=== PATIENT | male | born 1995 | race Caucasian/White ===

== ENCOUNTER 2017-12-06 19:02 | Emergency (ER) | payer SELFPAY ==
[~2017-12-06] VITALS: Ht 185.4 cm; Wt 81.4 kg
[2017-12-06 19:17] VITALS: BP 121/68
[2017-12-06] MEDS ORDERED: ARIP2 PO (19:18)
== END 2017-12-06 21:00 | disposition left against medical advice (07) ==
LOC: EMS 19:08
DX: Z48.02 Encounter for removal of sutures (principal); Z53.21 Procedure and treatment not carried out due to patient leaving prior to being seen by health care provider

== ENCOUNTER 2020-11-24 13:35 | Emergency (ER) | payer MEDICARE, OTHER ==
[~2020-11-24] VITALS: Ht 185.4 cm; Wt 95.5 kg
[~2020-11-24 13:35] MED LIST: ARIP2 PO
[2020-11-24 13:47] VITALS: BP 119/74
[2020-11-24] MEDS ORDERED: ZYPREXA (13:51)
== END 2020-11-24 15:28 | disposition home or self-care (01) ==
LOC: EMS 13:48
DX: B86 Scabies (principal); F17.210 Nicotine dependence, cigarettes, uncomplicated; F12.90 Cannabis use, unspecified, uncomplicated
CPT/HCPCS: Z7502

== ENCOUNTER 2021-02-02 09:36 | Emergency (ER) | payer MEDICARE, OTHER ==
[~2021-02-02] VITALS: Ht 185.4 cm; Wt 86.4 kg
[~2021-02-02 09:36] MED LIST changes: -ARIP2 PO; +ZYPREXA
[2021-02-02] MEDS ORDERED: CefTRIAXone SODIUM 1 GM/VIAL IM ONE (10:00)
[2021-02-02] MEDS ORDERED: AZITHROMYCIN 500 MG TABLET PO ONE (10:00)
[2021-02-02] MEDS ORDERED: LIDOCAINE/PF 1% 2 ML VIAL IM ONE (10:00)
[2021-02-02 10:40] VITALS: BP 128/71
== END 2021-02-02 10:51 | disposition home or self-care (01) ==
LOC: EMS 09:36
DX: N34.2 Other urethritis (principal); F20.9 Schizophrenia, unspecified; F17.210 Nicotine dependence, cigarettes, uncomplicated; F12.90 Cannabis use, unspecified, uncomplicated
CPT/HCPCS: 87491; 87591; 96372; 99283; A9575; J0696; J3490

== ENCOUNTER 2021-02-08 08:50 | Emergency (ER) | payer MEDICARE, OTHER ==
[~2021-02-08] VITALS: Ht 185.4 cm; Wt 81.8 kg
[2021-02-08] MEDS ORDERED: SODIUM CHLORIDE 0.9% 1,000 ML IV ONE (09:30)
[2021-02-08] MEDS ORDERED: DICYCLOMINE HCL 20 MG TABLET PO ONE (09:30)
[2021-02-08 09:52] LABS: ANION GAP 10 mmol/L (8-16); CALCIUM, TOTAL 9.3 mg/dL (8.8-10.5); CARBON DIOXIDE 28 mmol/L (22-29); CHLORIDE 104 mmol/L (98-107); CREATININE 0.95 mg/dL (0.60-1.30); GLOMERULAR FILTR. RATE CALC > 60 mL/min (>60); GLUCOSE,RANDOM 103 mg/dL (70-110); POTASSIUM 4.3 mmol/L (3.5-5.1); SODIUM SERUM 142 mmol/L (136-145); UREA NITROGEN, BLOOD 15 mg/dL (7-18)
[2021-02-08 09:58] LABS: ALANINE AMINOTRANSFERASE 26 U/L (12-78); ALBUMIN 4.9 g/dL (3.4-5.0); ALKALINE PHOSPHATASE 120 U/L (46-116); ASPARTATE AMINOTRANSFERASE 20 U/L (15-37); BILIRUBIN,TOTAL 0.5 mg/dL (0.1-1.0); LIPASE 334 U/L (73-393); TOTAL PROTEIN, SERUM 8.4 g/dL (6.4-8.2)
[2021-02-08 10:00] LABS: CARBAMAZEPINE (TEGRETOL) < 0.5 mcg/mL (4.0-12.0)
[2021-02-08 11:02] LABS: BASOPHILS % (AUTO) 0.2 % (0.0-2.0); EOSINOPHILS % (AUTO) 0.4 % (1.0-6.0); HEMOGLOBIN 15.7 g/dL (13.5-17.5); LYMPHOCYTES # (AUTO) 1.1 K/uL (1.0-4.8); LYMPHOCYTES % (AUTO) 8.9 % (22.0-44.0); MEAN CORPUSCULAR HEMOGLOBIN 30.3 pg (26.0-34.0); MEAN CORPUSCULAR HGB CONC 33.5 G/dL (31.0-37.0); MEAN CORPUSCULAR VOLUME 91 fL (80-100); MONOCYTES # (AUTO) 0.9 K/uL (0.1-1.0); MONOCYTES % (AUTO) 7.3 % (2.0-9.0); NEUTROPHILS # (AUTO) 10.4 K/uL (1.8-7.7); NEUTROPHILS % (AUTO) 83.2 % (40.0-70.0); PLATELET COUNT (AUTO) 267 K/uL (150-450); RED BLOOD CELL COUNT(AUTO) 5.19 MIL/uL (4.50-5.90); RED CELL DISTRIBUTION WIDTH 13.4 % (11.5-14.5)
[2021-02-08 11:13] VITALS: BP 134/81
== END 2021-02-08 11:16 | disposition home or self-care (01) ==
LOC: EMS 08:57
DX: R10.13 Epigastric pain (principal); R11.2 Nausea with vomiting, unspecified; R19.7 Diarrhea, unspecified; F20.9 Schizophrenia, unspecified; F12.90 Cannabis use, unspecified, uncomplicated; F17.210 Nicotine dependence, cigarettes, uncomplicated
CPT/HCPCS: 36415; 80053; 80156; 83690; 85025; 96360; 99283; J7030

== ENCOUNTER 2021-09-14 22:02 | Inpatient (IN) | payer MEDICARE, OTHER ==
[~2021-09-14] VITALS: Ht 185.4 cm; Wt 87.3 kg
[2021-09-14 22:31] LABS: BASOPHILS % (AUTO) 0.8 % (0.0-2.0); EOSINOPHILS % (AUTO) 1.8 % (1.0-6.0); HEMATOCRIT 42.8 % (41-53); HEMOGLOBIN 14.7 g/dL (13.5-17.5); LYMPHOCYTES # (AUTO) 1.9 K/uL (1.0-4.8); LYMPHOCYTES % (AUTO) 29.7 % (22.0-44.0); MEAN CORPUSCULAR HEMOGLOBIN 29.7 pg (26.0-34.0); MEAN CORPUSCULAR HGB CONC 34.3 G/dL (31.0-37.0); MEAN CORPUSCULAR VOLUME 87 fL (80-100); MONOCYTES # (AUTO) 0.6 K/uL (0.1-1.0); MONOCYTES % (AUTO) 10.2 % (2.0-9.0); NEUTROPHILS # (AUTO) 3.6 K/uL (1.8-7.7); NEUTROPHILS % (AUTO) 57.5 % (40.0-70.0); PLATELET COUNT (AUTO) 334 K/uL (150-450); RED BLOOD CELL COUNT(AUTO) 4.94 MIL/uL (4.50-5.90); RED CELL DISTRIBUTION WIDTH 14.1 % (11.5-14.5)
[2021-09-14 22:41] LABS: ANION GAP 6 mmol/L (8-16); CARBON DIOXIDE 29 mmol/L (22-29); CHLORIDE 106 mmol/L (98-107); CREATININE 0.92 mg/dL (0.60-1.30); GLOMERULAR FILTR. RATE CALC > 60 mL/min (>60); GLUCOSE,RANDOM 105 mg/dL (70-110); SODIUM SERUM 141 mmol/L (136-145); UREA NITROGEN, BLOOD 11 mg/dL (7-18)
[2021-09-14 22:45] LABS: PROTHROMBIN TIME 10.3 SEC (9.4-11.6)
[2021-09-14 22:49] LABS: AMMONIA 36 umol/L (11-32)
[2021-09-14 22:50] LABS: TROPONIN I < 0.02 ng/mL (0.00-0.05)
[2021-09-14 22:53] LABS: COVID AG,FIA SOURCE NASOPHARYNGEAL
[2021-09-14 22:54] LABS: B-TYPE NATRIURETIC PEPTIDE < 5 pg/mL (0-100)
[2021-09-14 22:56] LABS: SALICYLATE 1.7 mg/dL (2.8-20.0)
[2021-09-14 23:11] LABS: ACETAMINOPHEN < 2 mcg/mL (10-30); ALANINE AMINOTRANSFERASE 30 U/L (12-78); ALBUMIN 4.3 g/dL (3.4-5.0); ALKALINE PHOSPHATASE 148 U/L (46-116); ASPARTATE AMINOTRANSFERASE 24 U/L (15-37); BILIRUBIN,TOTAL 0.5 mg/dL (0.1-1.0); CREATINE KINASE, TOTAL ONLY 642 U/L (39-308); TOTAL PROTEIN, SERUM 8.5 g/dL (6.4-8.2)
[2021-09-14 23:13] LABS: APPEARANCE,URINE RPT (CLEAR); BILIRUBIN,URINE NEGATIVE (NEGATIVE); GLUCOSE, URINE (UA) NEGATIVE (NEGATIVE); KETONES,URINE NEGATIVE (NEGATIVE); LEUKOCYTE ESTERASE ,URINE NEGATIVE (NEGATIVE); NITRATE,URINE NEGATIVE (NEGATIVE); OCCULT BLOOD,URINE NEGATIVE (NEGATIVE); PH,URINE 6.5 (5.0-8.0); PROTEIN,URINE NEGATIVE (NEGATIVE); UROBILINOGEN,URINE 0.2 mg/dL (<=1.0)
[2021-09-14] MEDS ORDERED: SODIUM CHLORIDE 0.9% 1,000 ML IV ONE (23:30)
[2021-09-14 23:42] LABS: AMPHET/METH SCREEN,URINE NEGATIVE (NEGATIVE); BARBITURATE SCREEN, URINE NEGATIVE (NEGATIVE); BENZODIAZEPINES SCREEN,URINE NEGATIVE (NEGATIVE); CANNABINOID SCREEN,URINE POSITIVE (NEGATIVE); COCAINE SCREEN,URINE NEGATIVE (NEGATIVE); METHADONE SCREEN, URINE NEGATIVE (NEGATIVE); OPIATE SCREEN,URINE NEGATIVE (NEGATIVE); PHENCYCLIDINE SCREEN,URINE NEGATIVE (NEGATIVE)
[2021-09-15] MEDS ORDERED: ACETAMINOPHEN 325 MG TABLET PO PRN (02:45)
[2021-09-15] MEDS ORDERED: ONDANSETRON HCL 4 MG/2 ML VIAL IVP PRN (02:45)
[2021-09-15] MEDS: SODIUM CHLORIDE 0.9% 1,000 ML IV SCH ×2 (06:10→21:33)
[2021-09-15 11:00] VITALS: BP 135/76
[2021-09-15] MEDS: FAMOTIDINE 10 MG/ML 2 ML VIAL IVP SCH ×2 (12:19→21:25)
[2021-09-15] MEDS: HEPARIN SODIUM,PORCINE 5,000 UNITS/ML VIAL SQ SCH ×2 (12:19→17:03)
[2021-09-15 12:50] VITALS: BP 139/70
[2021-09-15] MEDS ORDERED: QUEtiapine FUMARATE 100 MG TABLET PO PRN (16:00)
[2021-09-15 16:50] VITALS: BP 161/58
[2021-09-15 19:23] VITALS: BP 62/67
[2021-09-15] MEDS ORDERED: QUEtiapine FUMARATE 100 MG TABLET PO SCH (21:00)
[2021-09-15] MEDS ORDERED: MELATONIN 5 MG TABLET PO SCH (21:00)
[2021-09-16 00:22] VITALS: BP 118/74
[2021-09-16 04:31] VITALS: BP 115/48
[2021-09-16] MEDS: SODIUM CHLORIDE 0.9% 1,000 ML IV SCH (06:49)
[2021-09-16 07:03] LABS: BASOPHILS % (AUTO) 0.6 % (0.0-2.0); EOSINOPHILS % (AUTO) 1.6 % (1.0-6.0); HEMATOCRIT 41.2 % (41-53); HEMOGLOBIN 13.7 g/dL (13.5-17.5); LYMPHOCYTES # (AUTO) 1.2 K/uL (1.0-4.8); LYMPHOCYTES % (AUTO) 21.3 % (22.0-44.0); MEAN CORPUSCULAR HEMOGLOBIN 29.3 pg (26.0-34.0); MEAN CORPUSCULAR HGB CONC 33.4 G/dL (31.0-37.0); MEAN CORPUSCULAR VOLUME 88 fL (80-100); MONOCYTES # (AUTO) 0.5 K/uL (0.1-1.0); MONOCYTES % (AUTO) 9.7 % (2.0-9.0); NEUTROPHILS # (AUTO) 3.7 K/uL (1.8-7.7); NEUTROPHILS % (AUTO) 66.8 % (40.0-70.0); PLATELET COUNT (AUTO) 285 K/uL (150-450); RED BLOOD CELL COUNT(AUTO) 4.69 MIL/uL (4.50-5.90); RED CELL DISTRIBUTION WIDTH 14.5 % (11.5-14.5)
[2021-09-16 07:11] LABS: ANION GAP 10 mmol/L (8-16); CALCIUM, TOTAL 8.4 mg/dL (8.8-10.5); CARBON DIOXIDE 25 mmol/L (22-29); CHLORIDE 109 mmol/L (98-107); CREATININE 0.93 mg/dL (0.60-1.30); GLOMERULAR FILTR. RATE CALC > 60 mL/min (>60); GLUCOSE,RANDOM 80 mg/dL (70-110); POTASSIUM 3.9 mmol/L (3.5-5.1); SODIUM SERUM 144 mmol/L (136-145); UREA NITROGEN, BLOOD 12 mg/dL (7-18)
[2021-09-16 07:48] VITALS: BP 157/76
[2021-09-16] MEDS: HEPARIN SODIUM,PORCINE 5,000 UNITS/ML VIAL SQ SCH ×2 (08:00)
[2021-09-16] MEDS: FAMOTIDINE 10 MG/ML 2 ML VIAL IVP SCH (08:59)
[2021-09-16] MEDS ORDERED: OMEGA-3/DHA/EPA/FISH OIL 1,000 MG CAPSULE PO SCH (09:00)
[2021-09-16] MEDS ORDERED: NALTREXONE HCL 50 MG TABLET PO SCH (09:00)
== END 2021-09-16 11:00 | disposition left against medical advice (07) | DRG 917 ==
LOC: EMS 22:05 → 5S 09-15 05:36
PROVIDERS: ADMIT Internal Medicine; ATTEND Internal Medicine
DX: T43.591A Poisoning by other antipsychotics and neuroleptics, accidental (unintentional), initial encounter (principal); G92.9 Unspecified toxic encephalopathy; M62.82 Rhabdomyolysis; E72.20 Disorder of urea cycle metabolism, unspecified; F17.210 Nicotine dependence, cigarettes, uncomplicated; Z20.822 Contact with and (suspected) exposure to COVID-19; F20.9 Schizophrenia, unspecified; R74.8 Abnormal levels of other serum enzymes; Z53.29 Procedure and treatment not carried out because of patient's decision for other reasons; Y92.89 Other specified places as the place of occurrence of the external cause
CPT/HCPCS: 70450; 71045; 80048; 80053; 80337; 81003; 82140; 82550; 83605; 83735; 83880; 84484; 85025; 85610; 85730; 93005; 95816; 99285; G0378; G0480; G0481; J1644; J3490; J7030; Q9967; 36415-L1; 36415-TC

== ENCOUNTER 2021-09-21 14:24 | Emergency (ER) | payer MEDICARE, OTHER ==
[~2021-09-21] VITALS: Ht 185.4 cm; Wt 87.7 kg
[2021-09-21 16:18] VITALS: BP 134/70
== END 2021-09-21 16:19 | disposition home or self-care (01) ==
LOC: EMS 14:24
DX: K12.0 Recurrent oral aphthae (principal); F20.9 Schizophrenia, unspecified; F17.210 Nicotine dependence, cigarettes, uncomplicated
CPT/HCPCS: 99283; Z7502